=== PATIENT | female | born 1990 | race Caucasian/White ===

== ENCOUNTER 2022-08-28 15:10 | Emergency (ER) | payer MEDICAID ==
[2022-08-28] MEDS ORDERED: Sodium Chloride 0.9% 10 ML Syringe FLUSH PRN (15:40)
[2022-08-28] MEDS ORDERED: Prochlorperazine 10 MG/2 ML SDV IVPUSH ONE (15:40)
== END 2022-08-28 16:48 | disposition home or self-care (01) ==
LOC: JP.ED 15:10
DX: G43.009 Migraine without aura, not intractable, without status migrainosus (principal); Z88.0 Allergy status to penicillin; Z88.1 Allergy status to other antibiotic agents
CPT/HCPCS: 96374; 99283; 99284-25; J0780; J3490